=== PATIENT | female | born 2000 | race African-American/Black ===

== ENCOUNTER 2021-08-19 03:14 | Observation (INO) | payer MEDICAID, OTHER ==
[~2021-08-19] VITALS: Ht 152.4 cm; Wt 58.0 kg
[2021-08-19] MEDS ORDERED: IV RINGERS,LACTATED 1000ML 1,000 ML IV PRN (03:30)
[2021-08-19 04:01] LABS: BILIRUBIN,URINE NEGATIVE (NEG); CLARITY,URINE CLEAR; COLOR,URINE YELLOW; NITRITE,URINE NEGATIVE (NEG); PROTEIN,URINE NEGATIVE (NEG-TRACE); UROBILINOGEN,URINE 0.2 mg/dL (0.2 mg/dL)
[2021-08-19 04:02] LABS: BACTERIA,URINE FEW /HPF (0-FEW); RBC,URINE 0 /HPF (0-2); WBC,URINE OCC /HPF (0-4)
== END 2021-08-19 05:55 | disposition home or self-care (01) ==
LOC: 3 SO LND 03:14
PROVIDERS: ADMIT Obstetrics & Gynecology; ATTEND Obstetrics & Gynecology
DX: O62.9 Abnormality of forces of labor, unspecified (principal); O26.892 Other specified pregnancy related conditions, second trimester; R10.10 Upper abdominal pain, unspecified; O21.2 Late vomiting of pregnancy; Z3A.23 23 weeks gestation of pregnancy
CPT/HCPCS: 59025; 81001; 96360; G0378; G0379; J7120